=== PATIENT | female | born 2000 | race Caucasian/White ===

== ENCOUNTER 2024-06-12 08:57 | Emergency (ER) | payer OTHER, SELFPAY ==
[2024-06-12 09:00] VITALS: BP 131/84; PULSE 88; RESP 18; TEMP 36.6; O2SAT 100
--- NOTE | 2024-06-12 09:22 | PC.NURSE ---
Addendum entered by Oksana Seth RN 06/12/24 09:33: pt reports history of untreated anxiety Original Note: Pt c/o bilateral leg tingling that started yesterday with right arm tingling. C/O painful sex Mother reports she thinks pt has endometriosis. RN explained we will evaluate pt for emergent medical conditions, pt will have to also follow up with her medical sales representative.
[2024-06-12 10:00] VITALS: BP 116/70; PULSE 76; RESP 18; TEMP 36.6; O2SAT 98
[2024-06-12 10:31] LABS: Basophils Percent Auto 0.6 % (0.2-1.2); Eosinophils Absolute Auto 0.1 K/mm3 (0-0.3); Eosinophils Percent Auto 1.2 % (0-4.4); Hemoglobin 12.5 g/dL (12.0-15.0); Immature Granulocyte Absolute 0.02 K/mm3 (0.00-0.031); Immature Granulocyte Percent A 0.4 % (0-0.5); Lymphocytes Absolute Auto 1.61 K/mm3 (0.9-3.2); Lymphocytes Percent Auto 33.4 % (18.3-44.2); Mean Corpuscular HGB Conc 32.9 g/dl (32-36); Mean Corpuscular Hemoglobin 26.4 pg (26-34); Mean Corpuscular Volume 80.3 fl (80-100); Mean Platelet Volume 8.4 fl (7.4-10.4); Monocytes Absolute Auto 0.4 K/mm3 (0.1-0.6); Monocytes Percent Auto 7.7 % (2.6-8.5); Neutrophils Absolute Auto 2.7 K/mm3 (1.3-6.7); Neutrophils Percent Auto 56.7 % (45.5-73.1); Platelet Count Result 334 k/mm3 (150-375); Red Blood Count 4.73 M/mm3 (4.2-5.4); Red Cell Distribution Width 13.1 % (11.5-14.5); White Blood Count 4.8 K/mm3 (4.5-10.0)
[2024-06-12] MEDS: SODIUM CHLORIDE 0.9% IV 1,000 ML 999 ML IV CONT (10:36)
[2024-06-12 10:40] LABS: Appearance Urine Clear (Clear); Color Urine Yellow (Yellow); Glucose Urine UA Negative (Negative); Protein Urine Negative (Negative); Specific Grav Ur >= 1.030 (1.001-1.035); pH Urine 5.5 (5.0-9.0)
[2024-06-12 10:41] LABS: Add Urine Microscopic? NO; Bilirubin Urine Negative (Negative); Blood Urine Negative (Negative); Ketones Urine Negative (Negative); Leukocyte Esterase Ur Negative LEU/UL (Negative); Nitrate Urine Negative (Negative); Urobilinogen Urine 0.2 mg/dL (<2.0)
[2024-06-12 10:43] LABS: Alanine Aminotransferase 17 U/L (6-35); Albumin Level 4.3 g/dL (3.5-5.1); Alkaline Phosphatase 62 U/L (38-126); Anion Gap 9 mmol/L (4-12); Aspartate Amino Transferase 24 U/L (14-36); Bacteria Urine Rare /hpf; Bilirubin,Total 0.3 mg/dL (0.2-1.3); Blood Urea Nitrogen 15 mg/dL (7-17); Carbon Dioxide 27 mmol/L (22-30); Chloride 102 mmol/L (98-107); Estimated CRCL calculation 144 ml/min; Estimated Glomerular Filt Rate > 60; Glucose 88 mg/dL (65-110); Magnesium 1.9 mg/dL (1.6-2.3); Non Pathogenic Casts 0-2; Potassium 3.9 mmol/L (3.4-5.0); RBC Urine 0-2 /hpf (0-2); Sodium 138 mmol/L (137-145); Squamous Epithelial Cell Urine Occasional /hpf (Few); WBC Urine 0-5 /hpf (0-3)
[2024-06-12 10:56] LABS: SPREG INTERNAL CONTROL Positive; Serum Qual hCG Negative
[2024-06-12 11:00] VITALS: BP 119/75; PULSE 72; RESP 18; O2SAT 100
--- NOTE | 2024-06-12 11:11 | ED.GENADULT ---
HPI - General Adult General Chief complaint: Unspecified Stated complaint: allo 4 extremities pain, Time Seen by Provider: 06/12/24 10:07 History of Present Illness HPI narrative: Patient is a 23-year-old female who presents to the emergency department this morning complaining of dizziness. patient describes the dizziness as more of a lightheadedness near syncopal episode rather than a room spinning sensation. Patient states that yesterday she started to have similar symptoms and today she started to have some nausea so she decided to come to the emergency department for further evaluation. Patient admits that she gets the symptoms right around her menstrual cycle but states that she finished her menses 2 weeks ago and was still having the symptoms. denies any fevers or chills at home, denies any abdominal pain, chest pain or shortness of breath. Patient states that she is currently in the process to find a new OBGYN as she believes that she has endometriosis. No additional symptoms or concerns at this time. Related Data Home Medications Medication Instructions Recorded Confirmed buspirone 10 mg tablet 10 mg PO DAILY PRN Anxiety 08/31/19 08/31/19 Allergies Allergy/AdvReac Type Severity Reaction Status Date / Time No Known Allergies Allergy Mild Verified 09/01/19 10:20 Review of Systems Review of Systems: All systems are reviewed and are negative unless stated otherwise in the HPI. [facility] Past Medical History Medical History Anxiety IBS (irritable bowel syndrome) Obesity Family History Family History Grandparent Family history of heart disease in male family member before age 55 Other Family history of lung cancer Social History Social History Smoking status: Never smoker Exam Narrative: General: Alert, awake, afebrile, in no acute distress. HEENT: PERRL, no rhinorrhea, no post nasal drip, oropharynx clear. Cardiovascular: Regular rate and rhythm, no murmurs, rubs or gallops, no peripheral edema. Respiratory: Clear to auscultation bilaterally, no tachypnea, no wheezing, no rhonchi, no rubs, no respiratory distress. Abdomen: Soft, nontender, nondistended, no rebound, no guarding, no peritoneal signs. Musculoskeletal: No joint swelling or deformity, normal muscle tone. Skin: No rashes or petechia, no signs of infection. Neurological: Alert and oriented to person, place, and time. Follows all commands. No focal deficits, speech is clear and fluent. Course Vital Signs Vital signs: Vital Signs Temperature 98 F 06/12/24 09:00 Pulse Rate 88 06/12/24 09:00 Respiratory Rate 18 06/12/24 09:00 Blood Pressure 131/84 06/12/24 09:00 Pulse Oximetry 100 06/12/24 09:00 Oxygen Delivery Room Air 06/12/24 09:00 Temperature 98 F 06/12/24 09:00 Pulse Rate 88 06/12/24 09:00 Respiratory Rate 18 06/12/24 09:00 Blood Pressure 131/84 06/12/24 09:00 Pulse Oximetry 100 06/12/24 09:00 Oxygen Delivery Room Air 06/12/24 09:00 Medical Decision Making MDM Narrative Medical decision making narrative: The patient was evaluated by myself in the emergency department. History is obtained from patient who is an independent historian and physical exam was performed. External medical records were reviewed at this time. IV was established and pertinent tests were ordered. Patient was administered 1 L IV fluid bolus with normal saline. Laboratory results obtained revealing no acute process. Differential diagnosis considerations include acute viral syndrome, dehydration, electrolyte derangement. Comorbidities impacting this visit include none. I have evaluated and discussed social determinants of health with the patient that could potentially impact subsequent diagnosis and treatment plans. On repeat
[2024-06-12 11:41] VITALS: BP 118/79; PULSE 73; RESP 18; TEMP 36.7; O2SAT 96
== END 2024-06-12 11:56 | disposition home or self-care (01) ==
PROVIDERS: Emergency Provider Emergency Medicine; PCP Internal Medicine
DX: R55 Syncope and collapse (principal); F41.9 Anxiety disorder, unspecified; E66.9 Obesity, unspecified; Z68.37 Body mass index [BMI] 37.0-37.9, adult; K58.9 Irritable bowel syndrome, unspecified
CPT/HCPCS: 36415; 80053; 81003; 83735; 84703; 85025; 96360; 99283; J7030

== ENCOUNTER 2024-07-11 14:03 | Outpatient (CLI) | payer OTHER, SELFPAY ==
--- NOTE | ~2024-07-11 | US_ITS ---
EXAMINATION: US pelvic complete w TV DATE: 07/11/2024 14:33 INDICATION: Pelvic and perineal pain. TECHNIQUE: Multiple transabdominal and transvaginal sonographic images of the pelvis were obtained. COMPARISON: CT abdomen and pelvis 03/11/2019 FINDINGS: TRANSABDOMINAL ULTRASOUND: The uterus measures 6.6 x 3.2 x 3.5 cm. There is no free fluid in the pelvis. TRANSVAGINAL ULTRASOUND: The endometrial complex measures 5 mm in thickness. The right ovary measures 2.4 x 2.1 x 2.4 cm. The left ovary measures 3.2 x 2.2 x 2.8 cm. There is normal vascular flow in the ovaries. IMPRESSION: 1. Normal pelvis. Reviewed, dictated and finalized at location A. IMPRESSION: 1. Normal pelvis.
== END 2024-07-11 14:04 | disposition home or self-care (01) ==
PROVIDERS: PCP Student in an Organized Health Care Education/Training Program; Visit Provider Student in an Organized Health Care Education/Training Program
DX: R10.2 Pelvic and perineal pain (principal)
CPT/HCPCS: 76830; 76856